=== PATIENT | female | born 1990 | race Caucasian/White ===

== ENCOUNTER 2016-11-25 17:52 | Emergency (ER) | payer SELFPAY ==
[~2016-11-25] VITALS: Ht 175.3 cm; Wt 118.0 kg
[2016-11-25 17:55] VITALS: Ht 175.3 cm; Wt 118.0 kg
[2016-11-25 19:28] LABS: ABNORMAL IP MESSAGE 1; HEMATOCRIT 42.4 % (37.0-47.0); HEMOGLOBIN 14.1 g/dl (12.0-16.0); MEAN CORPUSCULAR HEMOGLOBIN 30.2 pg (29.0-33.0); MEAN CORPUSCULAR HGB CONC 33.3 g/dl (32.0-37.0); MEAN CORPUSCULAR VOLUME 90.8 fl (82.0-101.0); MEAN PLATELET VOLUME 10.5 fl (7.4-10.4); PLATELET COUNT 234 10^3/UL (140-415); RED BLOOD COUNT 4.67 10^6/ul (4.20-5.40); RED CELL DISTRIBUTION WIDTH 13.4 % (11.5-14.5)
--- NOTE | 2016-11-25 19:30 | RADRPT ---
PROCEDURE: OBSTETRICAL ULTRASOUND WITH ENDOVAGINAL IMAGES CLINICAL INDICATION: Vaginal Bleed () TECHNIQUE: Multiple sonographic images of the pelvis were obtained utilizing a transabdominal and endovaginal technique. The images were reviewed on a PACS workstation. COMPARISON: None. LMP: 10/17/2016 Gestational age by LMP: 5 weeks, 4 days FINDINGS: A possible intrauterine gestational sac is identified with mean sac diameter of 0.50 cm which would be consistent with a gestational age of 5 weeks, 0 days and an estimated date of delivery of 018 . No yolk sac or pole is identified within it. The right ovary is not visualized. The left ovary measures 4.3 x 2.6 x 2.6 cm. There is normal vascu lar flow in the left ovary. There is a 2.6 cm complex cystic lesion with an eccentric isoechoic component in the left ovary whic h is likely a hemorrhagic/corpus luteal cyst. There is mild pelvic free fluid. IMPRESSION: A possible intrauterine gestational sac is identified which would be consistent with a gestational a ge of 5 weeks, 0 days . No yolk sac or pole is identified within it. Findings may be due to a n early intrauterine although an ectopic is not excluded. Short-term follow-up ultrasound and serial Beta HCG measurements are recommended for further evaluation. 2.6 cm complex cystic lesion in the left ovary is likely a hemorrhagic/corpus luteal cyst. Nonvisualization of the right ovary. RPTAT: EE Physician Jermaine Date Time Electronically viewed and signed by Adriano Gonzalez Physician on 11/25/2016 19:29 /
[2016-11-25 19:33] LABS: ADD UMIC YES; UR ASCORBIC ACID 40 mg/dL (NEGATIVE); UR BACTERIA FEW /HPF (NONE SEEN); UR BILIRUBIN (Dip) NEGATIVE (NEGATIVE); UR BLOOD (Dip) NEGATIVE (NEGATIVE); UR CLARITY SLIGHTLY CLOUDY (CLEAR); UR COLOR YELLOW (YELLOW); UR GLUCOSE (Dip) NEGATIVE (NEGATIVE); UR KETONES (Dip) NEGATIVE (NEGATIVE); UR LEUKOCYTE ESTERASE (Dip) TRACE Leu/ul (NEGATIVE); UR MUCUS FEW /HPF (NONE SEEN); UR NITRITE (Dip) NEGATIVE (NEGATIVE); UR RBC 3 /HPF (0-5); UR SPECIFIC GRAVITY (Dip) 1.035 (1.003-1.030); UR SQUAMOUS EPITHELIAL CELL FEW /HPF (FEW); UR TOTAL PROTEIN (Dip) NEGATIVE (NEGATIVE); UR UROBILINOGEN (Dip) NEGATIVE (NEGATIVE)
[2016-11-25 19:48] LABS: ALBUMIN 4.7 g/dl (3.3-4.9); ALBUMIN/GLOBULIN RATIO 1.42; BILIRUBIN,INDIRECT 0.5 mg/dl (0-1.1); BILIRUBIN,TOTAL 0.5 mg/dl (0.2-1.3); CALCIUM 9.3 mg/dl (8.4-10.2); CREATININE 0.69 mg/dl (0.44-1.00); POTASSIUM 3.6 mmol/L (3.5-5.1)
[2016-11-25 20:01] LABS: LYMPHOCYTES # 3.3 10^3/ul (0.8-2.9); MONOCYTE # 0.5 10^3/ul (0.3-0.9); NEUTROPHIL # 6.2 10^3/ul (1.6-7.5)
--- NOTE | 2016-11-25 20:23 | ERD ---
ER Documentation Chief Complaint Date/Time DATE: 11/25/16 TIME: 20:20 Chief Complaint Complains of vag bleed with cramping today HPI Patient is a 26-year-old female who is who presents to the ED with mild vaginal bleeding and mild pelvic pain that started today. She states that the bleeding has decreased. She states that her OB doctor is at the [facility]. She has not seen her OB regarding this issue. Denies fever chills. Denies abdominal pain. No other complaints. ROS All systems reviewed and are negative except as per history of present illness. Allergies Allergies: Coded Allergies: No Known Allergy (Unverified , 11/25/16) PMhx/Soc Medical and Surgical Hx: pt denies Medical Hx, pt denies Surgical Hx History of Surgery: Yes () Anesthesia Reaction: No Hx Neurological Disorder: No Hx Respiratory Disorders: No Hx Cardiac Disorders: No Hx Psychiatric Problems: No Hx Miscellaneous Medical Probl: Yes (Preeclampsia) Hx Alcohol Use: No Hx Substance Use: No Hx Tobacco Use: No Smoking Status: Never smoker FmHx Family History: No coronary disease, No diabetes, No other Physical Exam Vitals Vital Signs Date Time Temp Pulse Resp B/P Pulse Ox O2 Delivery O2 Flow Rate FiO2 11/25/16 17:55 99.6 77 20 131/74 97 Physical Exam GENERAL: Well-developed, well-nourished female. Appears in no acute distress. HEAD: Normocephalic, atraumatic. EYES: Pupils are equally reactive bilaterally. EOMs grossly intact. No conjunctival erythema. ENT: Moist mucous membranes. No uvula deviation. No kissing tonsils. No exudates. NECK: Supple. No lymphadenopathy or thyromegaly. No meningismus. negative kernig. negative brudinski. LUNG: Clear to auscultation bilaterally. No rhonchi, wheezing, rales or coarse breath sounds. HEART: Regular rate and rhythm. No murmurs, rubs or gallops. ABDOMEN: No scars, ecchymosis or rashes noted. Soft, nontender, and nondistended. Positive bowel sounds in all four quadrants. No rebound tenderness , no guarding. (-) McBurneys point tenderness. No CVA tenderness. BACK: No midline tenderness. Extremities: Equal pulses bilaterally. No peripheral clubbing, cyanosis or edema. No unilateral leg swelling. NEUROLOGIC: Alert and oriented. Moving all four extremities. 5/5 strength in all extremities. Normal speech. Steady gait. SKIN: Normal color. Warm and dry. No rashes or lesions. Capillary refill < 2 seconds Result Diagram: 11/25/16184911/25/161849 Results 24 hrs Laboratory Tests Test 11/25/16 18:50 White Blood Count 10.010^3/ul Red Blood Count 4.6710^6/ul Hemoglobin 14.1g/dl Hematocrit 42.4% Mean Corpuscular Volume 90.8fl Mean Corpuscular Hemoglobin 30.2pg Mean Corpuscular Hemoglobin Concent 33.3g/dl Red Cell Distribution Width 13.4% Platelet Count 79647^3/UL Mean Platelet Volume 10.5fl Neutrophils % 62.0% Lymphocytes % 33.0% Monocytes % 5.0% Neutrophils # 6.210^3/ul Lymphocytes # 3.310^3/ul Monocytes # 0.510^3/ul Urine Color YELLOW Urine Clarity SLIGHTLY CLOUDY Urine pH 5.0 Urine Specific [place] 1.035 Urine Ketones NEGATIVEmg/dL Urine Nitrite NEGATIVEmg/dL Urine Bilirubin NEGATIVEmg/dL Urine Urobilinogen NEGATIVEmg/dL Urine Leukocyte Esterase TRACELeu/ul Urine Microscopic RBC 3/HPF Urine Microscopic WBC 1/HPF Urine Squamous Epithelial Cells FEW/HPF Urine Bacteria FEW/HPF Urine Mucus FEW/HPF Urine Hemoglobin NEGATIVEmg/dL Urine Glucose NEGATIVEmg/dL Urine Total Protein NEGATIVEmg/dl Sodium Level 141mmol/L Potassium Level 3.6mmol/L Chloride Level 104mmol/L Carbon Dioxide Level 27mmol/L Anion Gap 14 Blood Urea Nitrogen 15mg/dl Creatinine 0.69mg/dl Glucose Level 94mg/dl Calcium Level 9.3mg/dl Total Bilirubin 0.5mg/dl Direct Bilirubin 0.00mg/dl Indirect Bilirubin 0.5mg/dl Aspartate Amino Transf (AST/SGOT) 26IU/L Alanine Aminotransferase (ALT/SGPT) 31IU/L Alkaline Phosphatase 88IU/L Total Protein 8.0g/dl Albumin 4.7g/dl Globulin 3.30g/dl Albumin/Globulin Ratio 1.42 Beta HCG, Quantitative 2284.2mIU/ml Procedures/MDM ER COURSE: I kept the patient and/or family informed of laboratory and diagnostic imaging results throughout the emergency room course. EKG, MONITORS, & DIAGNOSTIC IMAGING: [ [place] [id number] Radiology Main Line: [phone] DIAGNOSTIC IMAGING REPORT Patient: ELBA VILLAR : 1990 Age: 26 Sex: F MR #: [id number] DOS: 11/25/16 1848 Ordering MD: GEO WHARTON PA-C Location: [facility] Room/Bed: PROCEDURE: OBSTETRICAL ULTRASOUND WITH ENDOVAGINAL IMAGES CLINICAL INDICATION: Vaginal Bleed () TECHNIQUE: Multiple sonographic images of the pelvis were obtained utilizing a transabdominal and endovaginal technique. The images were reviewed on a PACS workstation. COMPARISON: None. LMP: 10/17/2016 Gestational age by LMP: 5 weeks, 4 days FINDINGS: A possible intrauterine gestational sac is identified with mean sac diameter of 0.50 cm which would be consistent with a gestational age of 5 weeks, 0 days and an estimated date of delivery of 07/28/2017 . No yolk sac or pole is identified within it. The right ovary is not visualized. The left ovary measures 4.3 x 2.6 x 2.6 cm. There is normal vascular flow in the left ovary. There is a 2.6 cm complex cystic lesion with an eccentric isoechoic component in the left ovary which is likely a hemorrhagic/corpus luteal cyst. There is mild pelvic free fluid. IMPRESSION: A possible intrauterine gestational sac is identified which would be consistent with a gestational age of 5 weeks, 0 days . No yolk sac or pole is identified within it. Findings may be due to an early intrauterine although an ectopic is not excluded. Short-term follow-up ultrasound and serial Beta HCG measurements are recommended for further evaluation. 2.6 cm complex cystic lesion in the left ovary is likely a hemorrhagic/corpus luteal cyst. Nonvisualization of the right ovary. RPTAT: EE Physician Jermaine Date Time Electronically viewed and signed by Adriano Gonzalez Physician on 11/25/2016 19:29 RA/ CC: GEO WHARTON PA-C LAB INTERPRETATION: CBC showed no evidence of systemic infection or severe anemia. CMP showed no evidence of electrolyte abnormalities, severe acidosis, alkalosis, renal failure , or liver disease. Lipase showed no evidence of acute pancreatitis. UA showed no evidence of leukocytes, nitrites or hematuria. [facility] RH: A+ MEDICAL DECISION MAKING: This is a 26-year-old female who presents with mild vaginal bleeding and pelvic pain that started today. Patient is . Vital signs were reviewed. Patient is afebrile. Patient is not hypoxic. Patient is not toxic or ill-appearing. Patient has what is likely a threatened . I consulted with the labor is customer retention representative, Dr. Muro who reviewed her imaging studies and her laboratory studies. Patient is to follow-up with OB in 2 days for reevaluation and recheck. Low suspicion for ectopic , , molar , endometriosis, PID, cervicitis, septic , molar , HELLP syndrome , preeclampsia, eclampsia, placenta previa, placenta abruptia. No RhoGam is seen at this time as patient is a positive DISCHARGE: At this time, patient is stable for discharge and outpatient management with no new complaints during the ER course. Patient was sent home with copy of all imaging and laboratory studies. Patient will be discharged home with instructions to recheck for new or worsening symptoms such as fever, nausea, weakness, LOC and to follow up with primary care in the next 1-2 days. Patient was advised to return to the ER for any new or worsening symptoms. Plan was discussed and patient and/or family understands and agrees. Home instructions were given. Departure Diagnosis: Primary Impression: Threatened Condition: Stable Patient Instructions: Possible Miscarriage (Threatened ) Additional Instructions: Call your primary care doctor TOMORROW for an appointment during the next 1-2 days.See the doctor sooner or return here if your condition worsens before your appointment time. GEO WHARTON PA-C Nov 25, 2016 20:23
[2016-11-25 20:42] VITALS: BP 130/84; PULSE 92; RESP 20; TEMP 99.6
== END 2016-11-25 20:43 | disposition home or self-care (01) ==
LOC: FTE 17:52
DX: O20.0 Threatened abortion (principal); R10.2 Pelvic and perineal pain; Z3A.01 Less than 8 weeks gestation of pregnancy
CPT/HCPCS: 36415; 76801; 76817; 80053; 81001; 84702; 85025; 86900; 86901